=== PATIENT | female | born 1990 | race Caucasian/White ===

== ENCOUNTER 2021-05-25 16:56 | Inpatient (IN) | payer BC ==
[~2021-05-25] VITALS: Ht 160 cm; Wt 73.5 kg
[2021-05-25 18:09] LABS: HEMOGLOBIN 11.4 gm/dl (12.3-15.3); RED BLOOD COUNT 3.75 M/UL (4.00-5.10); WHITE BLOOD COUNT 8.1 K/UL (4.5-11.0)
[2021-05-25] MEDS ORDERED: VISTARIL25 MG PO (18:13)
[2021-05-25] MEDS ORDERED: ZYRTEC10 MG PO (18:13)
[2021-05-25] MEDS ORDERED: PEPCID20 MG PO (18:14)
[2021-05-27] MEDS ORDERED: COLACE 100MG C100 MG PO (08:34)
[2021-05-27] MEDS ORDERED: HYDROCODON-ACE1 EAC6 PO (08:34)
[2021-05-27] MEDS ORDERED: IBUPROFEN600 MG PO (08:34)
[2021-05-28 04:35] LABS: HEMOGLOBIN 10.1 gm/dl (12.3-15.3)
== END 2021-05-28 20:01 | disposition home or self-care (01) | DRG 788 ==
LOC: GENOP 16:56 → OB 17:05
PROVIDERS: ADMIT Obstetrics & Gynecology
PROC: 10D00Z1 Extraction of Products of Conception, Low, Open Approach (ICD-10-PCS; principal; 2021-05-27 09:16)
DX: O24.424 Gestational diabetes mellitus in childbirth, insulin controlled (principal); O99.824 Streptococcus B carrier state complicating childbirth; O99.62 Diseases of the digestive system complicating childbirth; O99.52 Diseases of the respiratory system complicating childbirth; J30.2 Other seasonal allergic rhinitis; Z20.822 Contact with and (suspected) exposure to COVID-19; L23.9 Allergic contact dermatitis, unspecified cause; O99.892 Other specified diseases and conditions complicating childbirth; K58.9 Irritable bowel syndrome, unspecified; Z37.0 Single live birth; Z90.49 Acquired absence of other specified parts of digestive tract; Z3A.37 37 weeks gestation of pregnancy
CPT/HCPCS: 36415; 81001; 82800; 82962; 85014; 85018; 85025; 90715; C9113; J0690; J1200; J1885; J2210; J2274; J2370; J2405; J2590; J3010; J7120; Q0177